=== PATIENT | female | born 1985 | race Caucasian/White ===

== ENCOUNTER 2016-12-20 09:53 | Emergency (ER) | payer OTHER ==
[~2016-12-20] VITALS: Ht 162.6 cm; Wt 71.1 kg
[~2016-12-20 09:53] MED LIST: ANTIVERT25 MG PO; ASPIR 8181 M1 PO; ESCITALOPRAM OX10 MG PO; MOTRIN600 MG PO; NORCO 7.5/321 TABLET PO; PREVACID 24HR15 MG PO; PREVACID30 MG PO; RITALIN LA10 MG PO; RITALIN LA20 MG PO
[2016-12-20] MEDS ORDERED: DEPAKOTE SPRIN125 MG PO (10:09)
[2016-12-20] MEDS ORDERED: VIMPAT200 MG PO (10:09)
[2016-12-20 10:57] LABS: BASOPHIL COUNT 0.1 K/uL (0-0.1); EOSINOPHIL COUNT 0.1 K/uL (0-0.3); HEMATOCRIT 41.9 % (36.0-46.0); IMMATURE GRANULOCYTE (%) 0.2 % (0.0-0.7); INSTRUMENT ABS NEUTROPHIL CT 2.9 K/uL; LYMPHOCYTE COUNT 1.6 K/uL (1.0-2.8); MCH 33.2 PG (29.0-34.0); MCHC 34.4 G/DL (30.0-36.0); MCV 96.5 FL (83-99); MEAN PLAT.VOLUME 10.1 uM^3 (9.5-12.4); MONOCYTE (%) 7.1 % (3-12); MONOCYTE COUNT 0.4 K/uL (0-0.8); NEUTROPHIL COUNT 2.9 K/uL (1.8-6.4); PLATELET COUNT 238 K/uL (156-360); RBC DIS.WIDTH-CV 11.7 % (11.8-14.6); RBC DIS.WIDTH-SD 41.9 % (39-53); RED BLOOD COUNT 4.34 M/uL (3.80-5.20)
[2016-12-20 11:05] LABS: CHLORIDE 107 mEq/L (99-109); POTASSIUM 4.5 mEq/L (3.7-5.4); SODIUM 143 mEq/L (136-147)
[2016-12-20 11:07] LABS: GLUCOSE 95 mg/dL (70-99)
[2016-12-20 11:08] LABS: ANION GAP 11 MEQ/L (2-14)
[2016-12-20 11:10] LABS: GFR ESTIMATE (CALCULATED) > 59 mL/min/
[2016-12-20 11:11] LABS: UREA NITROGEN (BUN) 10 mg/dL (9-23)
[2016-12-20 13:18] VITALS: BP 105/68
== END 2016-12-20 13:20 | disposition home or self-care (01) ==
LOC: EME 09:53
PROVIDERS: Emergency Medicine
DX: G43.909 Migraine, unspecified, not intractable, without status migrainosus (principal); G40.909 Epilepsy, unspecified, not intractable, without status epilepticus
CPT/HCPCS: 70450; 80048; 85025; 99281; 99285; J1885; J2270; J2765; J7030

== ENCOUNTER 2017-01-09 18:09 | Emergency (ER) | payer OTHER ==
[~2017-01-09] VITALS: Ht 162.6 cm; Wt 71.7 kg
[~2017-01-09 18:09] MED LIST changes: +DEPAKOTE SPRIN125 MG PO; +VIMPAT200 MG PO
[2017-01-09] MEDS ORDERED: FLEXERIL10 MG PO (21:18)
[2017-01-09] MEDS ORDERED: VIMPAT100 MG PO (21:50)
[2017-01-09] MEDS ORDERED: CHILDREN'S100 MG/59 PO (21:51)
[2017-01-09] MEDS ORDERED: DIVALPROEX SOD125 MG PO (21:51)
[2017-01-09 21:57] VITALS: BP 109/59
== END 2017-01-09 21:59 | disposition home or self-care (01) ==
LOC: RME 18:09 → EME 18:09 → RME 21:59
DX: S16.1XXA Strain of muscle, fascia and tendon at neck level, initial encounter (principal); V49.50XA Passenger injured in collision with unspecified motor vehicles in traffic accident, initial encounter; Y92.481 Parking lot as the place of occurrence of the external cause
CPT/HCPCS: 72040; 99281; 99284

== ENCOUNTER 2017-04-18 17:24 | Emergency (ER) | payer OTHER ==
[~2017-04-18] VITALS: Ht 162.6 cm; Wt 72.6 kg
[~2017-04-18 17:24] MED LIST changes: +CHILDREN'S100 MG/59 PO; +DIVALPROEX SOD125 MG PO; +FLEXERIL10 MG PO; +VIMPAT100 MG PO
[2017-04-18 21:29] VITALS: BP 120/75
== END 2017-04-18 21:29 | disposition home or self-care (01) ==
LOC: EME 17:24
DX: M77.12 Lateral epicondylitis, left elbow (principal); G40.909 Epilepsy, unspecified, not intractable, without status epilepticus; Z86.79 Personal history of other diseases of the circulatory system; Z88.0 Allergy status to penicillin; Z88.1 Allergy status to other antibiotic agents; Z88.5 Allergy status to narcotic agent
CPT/HCPCS: 99281; 99283

== ENCOUNTER 2017-07-19 13:08 | Emergency (ER) | payer OTHER ==
[~2017-07-19] VITALS: Ht 162.6 cm; Wt 76.2 kg
[2017-07-19 15:30] LABS: ADD MIUA? YES; BILIRUBIN NEGATIVE; BLOOD NEGATIVE; COLOR STRAW ((YELLOW)); GLUCOSE (STRIP) NEGATIVE; KETONES NEGATIVE; LEUKOCYTES TRACE; NITRITE NEGATIVE; PROTEIN (STRIP) NEGATIVE; SPECIFIC GRAVITY 1.008 (1.000-1.030); UROBILINOGEN 0.2 MG/DL (0.2-1.0)
[2017-07-19 15:32] LABS: BACTERIA RARE /HPF; EPITHELIAL CELLS RARE /HPF; INTERNAL CONTROL VALID? YES; MUCUS TRACE /LPF; RED BLOOD CELLS 0-5 /HPF (0-5); WHITE BLOOD CELLS 0-5 /HPF (0-5)
[2017-07-19] MEDS ORDERED: PAIN RELIE500 MG/15 PO (16:07)
[2017-07-19] MEDS ORDERED: LIDODERM 5% P1 PATCH TD (16:07)
[2017-07-19 17:08] VITALS: BP 108/62
== END 2017-07-19 17:42 | disposition home or self-care (01) ==
LOC: EME 13:08
PROVIDERS: Nurse Practitioner Family
DX: M54.5 Low back pain (principal); R20.2 Paresthesia of skin; R42 Dizziness and giddiness; R51 Headache
CPT/HCPCS: 81003; 84703; J1885

== ENCOUNTER 2018-06-11 11:18 | Emergency (ER) | payer OTHER ==
[~2018-06-11] VITALS: Ht 162.6 cm; Wt 81.2 kg
[~2018-06-11 11:18] MED LIST changes: +LIDODERM 5% P1 PATCH TD; +PAIN RELIE500 MG/15 PO
[2018-06-11 12:48] LABS: HEMATOCRIT 40.1 % (36.0-46.0); HEMOGLOBIN 14.1 G/DL (11.9-15.5); MCH 32.9 PG (29.0-34.0); MCHC 35.2 G/DL (30.0-36.0); MCV 93.7 FL (83-99); PLATELET COUNT 262 K/uL (156-360); RBC DIS.WIDTH-CV 11.8 % (11.8-14.6); RBC DIS.WIDTH-SD 40.5 % (39-53); RED BLOOD COUNT 4.28 M/uL (3.80-5.20); WHITE BLOOD COUNT 5.7 K/uL (4.1-10.2)
[2018-06-11 13:01] LABS: CHLORIDE 104 mEq/L (99-109); POTASSIUM 4.1 mEq/L (3.7-5.4); SODIUM 140 mEq/L (136-147)
[2018-06-11 13:02] LABS: GLUCOSE 103 mg/dL (70-99)
[2018-06-11 13:06] LABS: CREATININE 0.9 mg/dL (0.6-1.3); GFR ESTIMATE (CALCULATED) > 59 mL/min/
[2018-06-11 13:07] LABS: UREA NITROGEN (BUN) 9 mg/dL (9-23)
[2018-06-11 13:24] LABS: APPEARANCE CLEAR ((CLEAR)); BILIRUBIN NEGATIVE; BLOOD NEGATIVE; COLOR COLORLESS ((YELLOW)); GLUCOSE (STRIP) NEGATIVE; KETONES NEGATIVE; LEUKOCYTES NEGATIVE; NITRITE NEGATIVE; PROTEIN (STRIP) NEGATIVE; SPECIFIC GRAVITY 1.003 (1.000-1.030); UCUL ADDED? NO; UROBILINOGEN 0.2 MG/DL (0.2-1.0)
[2018-06-11 13:57] LABS: QUANTITATIVE HCG < 4.0 MIU/ML
[2018-06-11 14:56] LABS: TOTAL BILIRUBIN 0.4 MG/DL (0.0-1.0)
[2018-06-11 14:57] LABS: ALBUMIN 4.8 G/DL (3.2-4.8); ALKALINE PHOSPHATASE 46 IU/L (3-129); ALT (GPT) 9 IU/L (3-49); AST (GOT) 17 IU/L (2-34); CARBAMAZEPINE (TEGRETOL) < 2.0 MCG/ML (4.0-12.0); VALPROIC ACID (DEPAKOTE) 89.7 MCG/ML (50-100)
[2018-06-11 15:49] VITALS: BP 112/78
== END 2018-06-11 15:50 | disposition home or self-care (01) ==
LOC: EME 11:18
DX: R51 Headache (principal); G40.A09 Absence epileptic syndrome, not intractable, without status epilepticus; R42 Dizziness and giddiness; R11.0 Nausea; I45.10 Unspecified right bundle-branch block; Z88.0 Allergy status to penicillin
CPT/HCPCS: 70450; 80048; 80076; 80156; 80164; 81003; 84702; 85027; 93005; 99281; 99283